=== PATIENT | female | born 1955 | race Caucasian/White ===

== ENCOUNTER 2016-10-05 10:57 | Observation (INO) | payer BC ==
[2016-10-01 10:53] VITALS: Ht 169.9 cm; Wt 73.0 kg
[2016-10-05] VITALS (37 sets, daily range): BP systolic 95–148; RESP 10–20; TEMP 97–98.6
[~2016-10-05] VITALS: Ht 169.9 cm; Wt 73.0 kg
[~2016-10-05 10:57] MED LIST: BACITRACIN OINT TOPICAL ONE; FENTANYL 100 MCG/2 ML AMP IV ONE; GLYCOPYRROLATE 0.2 MG/ML VIAL IV ONE; LIDOCAINE/EPI 1% MDV 20 ML INFILTRATE ONE; MEPERIDINE 25 MG/ML IV ONE; NEOSTIGMINE 10 MG/10 ML VIAL IV ONE; PROPOFOL 20 ML PER ML IV ONE; ROCURONIUM 50 MG VIAL IV ONE
[2016-10-05] MEDS ORDERED: LACT RINGERS 1,000 ML IV SCH (12:20)
[2016-10-05] MEDS ORDERED: DEXAMETHASONE 4 MG/ML VIAL IV ONE (12:20)
[2016-10-05] MEDS ORDERED: ONDANSETRON 4 MG VIAL IV ONE (12:20)
[2016-10-05] MEDS ORDERED: MIDAZOLAM 2 MG/2 ML INJ IV ONE (12:20)
[2016-10-05] MEDS ORDERED: SCOPOLAMINE PATCH TRANSDERM ONE (12:20)
[2016-10-05] MEDS ORDERED: GLYCOPYRROLATE 0.2 MG/ML VIAL IV ONE (12:20)
[2016-10-05] MEDS ORDERED: LIDOCAINE 1% BUFFERED 1 ML SYR INTRADERM PRN (12:20)
[2016-10-05] MEDS ORDERED: MORPHINE 4 MG/ML SYR IV PRN ×3 (15:20→19:35)
[2016-10-05] MEDS ORDERED: OXYCODONE 5 MG TAB PO PRN ×2 (15:20→19:35)
[2016-10-05] MEDS ORDERED: DILAUDID 1 MG/ML AMP IV PRN ×2 (15:20→19:35)
[2016-10-05] MEDS ORDERED: ONDANSETRON 4 MG VIAL IV PRN ×3 (15:20→19:35)
[2016-10-05] MEDS ORDERED: MEPERIDINE 25 MG/ML IV PRN ×2 (15:20→19:35)
[2016-10-05] MEDS ORDERED: MORPHINE 2 MG/ML SYR IV PRN ×3 (15:20→19:35)
[2016-10-05] MEDS ORDERED: PROMETHAZINE 25 MG SUPP RECTAL PRN (16:25)
[2016-10-05] MEDS ORDERED: SALINE FLUSH 10 ML FLUSH PRN (16:25)
[2016-10-05] MEDS ORDERED: SODIUM CHLORIDE 0.45% 1,000 ML IV SCH (16:25)
[2016-10-05] MEDS: CALCIUM PO SCH (21:00)
[2016-10-05] MEDS: BACITRACIN OINT TOPICAL SCH (21:00)
[2016-10-05] MEDS: HYDROGEN PEROXIDE 3% 480 ML TOPICAL SCH (21:00)
[2016-10-05] MEDS: VIT D PO SCH (21:00)
[2016-10-06 03:40] VITALS: BP_SYST 94; RESP 18; TEMP 98.3
[2016-10-06 07:37] VITALS: BP_SYST 98; RESP 18; TEMP 98.1
[2016-10-06] MEDS: BACITRACIN OINT TOPICAL SCH (09:00)
[2016-10-06] MEDS: HYDROGEN PEROXIDE 3% 480 ML TOPICAL SCH (09:00)
[2016-10-06] MEDS: CALCIUM PO SCH (09:19)
[2016-10-06] MEDS: VIT D PO SCH (09:19)
[2016-10-06 11:57] VITALS: BP_SYST 106; RESP 16; TEMP 97.9
[2016-10-06 14:49] VITALS: BP_SYST 106; RESP 16; TEMP 97.9
[2016-10-08] MEDS ORDERED: REMOVE SCOPALAMINE PATCH XX ONE (12:20)
== END 2016-10-06 13:57 | disposition home or self-care (01) ==
LOC: SURG 10:57 → SDS 16:32 → ENPENDDIS 16:32 → 3S 17:56
PROVIDERS: ADMIT Otolaryngology; ATTEND Otolaryngology
CPT/HCPCS: 36415; 71020; 80048; 82310; 83970; 84439; 84443; 85025; 85610; 85730; 88307; 88331; 94762; 94799